=== PATIENT | male | born 1965 | race Caucasian/White ===

== ENCOUNTER 2019-07-31 09:31 | Emergency (ER) | payer OTHER ==
--- NOTE | 2019-07-31 10:02 | EDM.PDOC ---
ED HPI GENERAL MEDICAL PROBLEM - General Chief Complaint: Lower Extremity Injury/Pain Stated Complaint: POSSIBLE BROKEN LEFT FOOT Time Seen by Provider: 07/31/19 09:55 Source of Information: Reports: Patient History Limitations: Reports: No Limitations - History of Present Illness INITIAL COMMENTS - FREE TEXT/NARRATIVE: 54-year-old male presents with left great toe pain after stubbing it in the bedpost 3 to 4 days ago at [facility]. He notes the pain and swelling has worsened since. Pain is currently moderate, worse with weightbearing, constant, nonradiating. Patient is visiting from [facility], he will fly back to [place] in 5 days. ROS: A 10-point review of systems, other than pertinent positives and negatives as stated per HPI, is otherwise negative PHYSICAL EXAM General: AOx4, GCS = 15, mild distress HEENT: dry mucous membrane Neck: supple, no meningismus, no Kernig or Brudzinski Cardiac: S1S2 RRR Respiratory: CTAB, no crackles or rales, no wheezing Abdomen: Soft, nontender, no rebound or guarding, nondistended, no pulsatile mass. Back: nontender Musculoskeletal: NVI distally, left 1st metatarsal neck tender to palpation with trace swelling, worse with range of motion, no open wounds. Neuro: No focal deficits, CN 2 - 12 WNL. MEDICAL DECISION MAKING: I reviewed the patients past medical records, lab and radiographic findings. I discussed the case with family members. My differential diagnosis included: fracture/dislocation/contusion. Patient was offered a posterior short leg splint with crutches for nonweightbearing. Patient declined that splint due to work limitations and will be given a cam boot instead, with crutches and instructions for nonweightbearing. Patient will return to [place] in 5 days and is instructed to follow-up with his orthopedist there immediately upon return. left great toe Pain Score (Numeric/FACES): 6 - Related Data Allergies Allergy/AdvReac Type Severity Reaction Status Date / Time No Known Allergies Allergy Verified 07/31/19 09:47 Home Meds: Home Meds Acetaminophen/oxyCODONE [Percocet 325-5 MG] 1 each PO Q6HR PRN #12 tab 07/31/19 [Rx] Metoprolol Succinate mg PO 07/31/19 [History] lisinopriL [Lisinopril] mg PO 07/31/19 [History] Past Medical History Cardiovascular History: Reports: Hypertension Social & Family History - Family History Family Medical History: Noncontributory - Tobacco Use Smoking Status *Q: Current Every Day Smoker Years of Tobacco use: 35 Packs/Tins Daily: 1 Review of Systems - Review of Systems Review Of Systems: See Below (See dictation) ED EXAM, GENERAL - Physical Exam Exam: See Below (See dictation) ED TRAUMA EXTREMITY PROCEDURES - Splinting Left Lower Extremity Splint Site: left foot Pre-Procedure NV Status: Normal Post-Procedure NV Status: Normal Splint Material: Fiberglass, Other Splint Design: Posterior (posterior short) Applied & Form Fitted By: Nurse Provider Post-Splint Application NV Check: NV Status Normal Complications: No Progress/Comments: Crutches give for non weight bearing Course - Vital Signs Last Recorded V/S: Last Vital Signs Temp 97.0 F 07/31/19 09:45 Pulse 75 07/31/19 09:45 Resp 16 07/31/19 09:45 BP 107/71 07/31/19 09:45 Pulse Ox 99 07/31/19 09:45 - Orders/Labs/Meds Orders: Active Orders 24 hr Category Date Time Status Splinting [RC] ASDIRECTED Care 07/31/19 10:25 Active DME for Discharge [COMM] Stat Oth 07/31/19 10:38 Ordered Departure - Departure Time of Disposition: 10:48 Disposition: Home, Self-Care 01 Condition: Good Clinical Impression: Fracture of metatarsal of left foot, closed - Discharge Information *PRESCRIPTION DRUG MONITORING PROGRAM REVIEWED*: Yes *COPY OF PRESCRIPTION DRUG MONITORING REPORT IN PATIENT CAR: Yes Prescriptions: Acetaminophen/oxyCODONE [Percocet 325-5 MG] 1 each PO Q6HR PRN #12 tab PRN Reason: Pain Instructions: Metatarsal Fracture With Rehab-SportsMed, Cast or Splint Care, Adult, [id number] Referrals: PCP,None [Primary Care Provider] - Forms: ED Department Discharge Additional Instructions: The following information is given to patients seen in the emergency department who are being discharged to home. This information is to outline your options for follow-up care. We provide all patients seen in our emergency department with a follow-up referral. The need for follow-up, as well as the timing and circumstances, are variable depending upon the specifics of your emergency department visit. If you don't have a primary care physician on staff, we will provide you with a referral. We always advise you to contact your personal physician following an emergency department visit to inform them of the circumstance of the visit and for follow-up with them and/or the need for any referrals to a consulting specialist. The emergency department will also refer you to a specialist when appropriate. This referral assures that you have the opportunity for follow-up care with a specialist. All of these measure are taken in an effort to provide you with optimal care, which includes your follow-up. Under all circumstances we always encourage you to contact your private physician who remains a resource for coordinating your care. When calling for follow-up care, please make the office aware that this follow-up is from your recent emergency room visit. If for any reason you are refused follow-up, please contact the [facility] Emergency Department at and asked to speak to the emergency department charge nurse. [facility] - [facility] Professional Building [address] [place] [address], [address] [place] [address] Care Plan Goals: PLease folllow up with orthopedics in 1 week, keep nonweight bearing. Sepsis Event Note - Evaluation Sepsis Screening Result: No Definite Risk - Focused Exam Vital Signs: Vital Signs Temp Pulse Resp BP Pulse Ox 07/31/19 09:45 97.0 F 75 16 107/71 99 Date Exam was Performed: 07/31/19 Time Exam was Performed: 10:47 - My Orders Last 24 Hours: My Active Orders 07/31/19 10:25 Splinting [RC] ASDIRECTED 07/31/19 10:38 DME for Discharge [COMM] Stat - Assessment/Plan Last 24 Hours: My Active Orders 07/31/19 10:25 Splinting [RC] ASDIRECTED 07/31/19 10:38 DME for Discharge [COMM] Stat
--- NOTE | 2019-07-31 10:18 | CR ---
Left foot: 3 views left foot were obtained. Comparison: No prior foot exam is available. No calcaneal spurs are seen. Minimal osteophyte off the 1st metatarsal head with minimal joint space narrowing within the 1st MTP joint. No fracture, dislocation or other bony abnormality is appreciated. Impression: 1. Slight degenerative change within the 1st MTP joint. 2. Left foot exam is otherwise unremarkable. Diagnostic code #2 This report was dictated in MDT
== END 2019-07-31 10:55 | disposition home or self-care (01) ==
LOC: MW.ED 09:31
DX: S92.312A Displaced fracture of first metatarsal bone, left foot, initial encounter for closed fracture (principal); I10 Essential (primary) hypertension; F17.210 Nicotine dependence, cigarettes, uncomplicated; Z79.899 Other long term (current) drug therapy; W22.8XXA Striking against or struck by other objects, initial encounter; Y92.59 Other trade areas as the place of occurrence of the external cause
CPT/HCPCS: 29515; 73630-26-LT; 73630-LT; 99282; 99283-25